=== PATIENT | female | born 1985 | race Caucasian/White ===

== ENCOUNTER 2018-09-06 09:48 | Inpatient (IN) | payer OTHER ==
[~2018-09-06] VITALS: Ht 157.5 cm; Wt 68.3 kg
[2018-09-06 10:01] VITALS: BP 115/79; PULSE 76; RESP 18; Ht 157.5 cm; Wt 68.3 kg
[2018-09-06] MEDS ORDERED: PREN-93 PO (10:01)
--- NOTE | 2018-09-06 10:26 | TRIAGE ---
OB Triage Datetime Report Generated by CPN: 09/06/2018 10:26 Datetime: 09/06/2018 10:06 Vaginal Exam Dilatation (cms): 3.0 Effacement (%): 90 Station: -2 Exam By: kristen Vaginal Bleeding: None Cervix, Consistency: Soft Cervix, Position: Midposition Presentation 'A': Cephalic Datetime: 09/06/2018 09:58 Assessment Type: Triage Maternal Assessment Level of Consciousness: Keenly Alert, Responsive DTR's/Clonus: DTRs 2+; No Clonus Headache: Denies Blurred Vision: No Respiratory Effort: Unlabored; Regular Rhythm; Equal Expansion Breath Sounds, Left: Clear and Equal Breath Sounds, Right: Clear and Equal Nausea/Vomiting: Denies RUQ Epigastric Pain: Denies Lower Extremities Edema: Bilateral Lower Extremities Degree: 1+ Upper Extremities Edema: None Degree: None Facial Edema: None Fall Risk Assessment History of Falling: (0) No Secondary Diagnosis: (0) No Ambulatory Aid: (0) Bedrest/Nurse Assist IV Therapy: (0) No Gait: (0) Normal/Bedrest/Immobile Mental Status: (0) Oriented to Own Ability Fall Score: 0 Fall Risk Score Definition: No Risk: No action required Datetime: 09/06/2018 09:56 Time of Arrival: 09/06/2018 09:37 EGA: 39.6 Arrived By: Ambulatory; Wheelchair Arrived From: Home Chief Complaint: PT. HERE C/O UC'S SINCE 829 Movement: Present Contractions: Irregular Rupture of Membranes: Denies Vaginal Bleeding: None Vaginal Discharge: Denies Recent Sexual Intercouse: Denies Abdominal Trauma: Not Applicable Patient Complaints: Contractions; Cramping; Back Pain Time Provider Notified: 09/06/2018 10:10 Provider Notified: HADADIAN Initial Plan: EFM/SVE Datetime: 09/06/2018 09:54 Labor Evaluation Monitor Mode: External Heart Rate Monitor Mode: External US
[2018-09-06] MEDS ORDERED: METHYLERGONOVINE 0.2 MG INJ IM PRN (11:30)
[2018-09-06] MEDS ORDERED: OXYTOCIN 30 UNITS/LR 500 ML IV PRN (11:30)
[2018-09-06] MEDS ORDERED: LIDOCAINE 1% (MPF) 30 ML INJ INJ PRN (11:30)
[2018-09-06] MEDS ORDERED: CARBOPROST 250 MCG INJ IM PRN (11:30)
[2018-09-06] MEDS ORDERED: MISOPROSTOL 200 MCG TAB PR PRN (11:30)
[2018-09-06] MEDS ORDERED: OXYTOCIN 30 UNITS/LR 500 ML IV SCH ×2 (11:30)
[2018-09-06] MEDS ORDERED: BUTORPHANOL 2 MG INJ IV PRN (11:30)
[2018-09-06] MEDS ORDERED: AMPICILLIN 2 GM/NS (PMX) 100 ML IV ONE (11:30)
[2018-09-06] MEDS ORDERED: IBUPROFEN 600 MG TAB PO PRN (11:30)
[2018-09-06] MEDS: LACTATED RINGER'S 1,000 ML IV SCH ×4 (11:33→19:17)
[2018-09-06] MEDS ORDERED: FENTAnyl 2MCG/ML-ROPIV 0.2% 100 ML ONE (12:13)
--- NOTE | 2018-09-06 12:13 | HP ---
Date/Time of Note Date/Time of Note DATE: 09/06/18 TIME: 12:09 OB - History Hx of Present Free Text/Dictation 32 years old 1 with single intrauterine at 39 weeks and 6 days complaining of uterine contractions. She states good movement. She denies nausea, vomiting, shortness of breath, chest pain, headache, visual changes, vaginal bleeding or LOF. Chief Complaint: Uterine contractions Estimated Due Date: Sep 07, 2018 : 1 Care: Good Care Ultrasounds: Normal mid trimester US Obstetrical Complications: None Medical Complications: None Past Family/Social History * Past Medical, Surgical, Family and Obstetric Histories reviewed which is unremarkable Blood Type: O+ Rubella: immune RPR/VDRL: Negative GBS Status: Negative HBsAG: Negative OB Admission Exam Vital Signs Vital Signs Vital Signs Date Temp Pulse Resp B/P (MAP) Pulse Ox O2 O2 Flow FiO2 Time Delivery Rate 09/06/18 97.7 76 18 115/79 Room Air 10:01 (91) Physical Exam HEENT: WNL Heart: Rhythm Normal Lungs: Clear Abdomen: WNL Extremities: Normal Cervical Dilatation: 3cm Effacement: 75% Station: -2 Membranes: Intact Heart Rate: 140's Accelerations: Accelerations Present Decelerations: No Decelerations Varibility: Moderate Contractions on Admission: < 5 Minutes Apart Intensity: Moderate Last 72 hours Lab Results OB Assessment/Plan Other plan: 32 years old 1 with single intrauterine at 39 weeks and 6 days in labor -FHR: No sign of metabolic acidosis- Category I -Continuous EFM, toco -CBC, blood type and screen -Analgesia options with R/B/A discussed in detail with patient -Epidural per patient request -Please see the orders -O+/Rubella: Immune -GBS: Negative Admission, procedures, expectations, risks and possible complications have been discussed in detail with the patient. Risk of vaginal delivery including but not limited to bleeding, infection, cervical laceration, placental retention, injury to fetus, blood transfusion, blood transfusion related infection, risk of anesthesia, adhesion, cervical laceration, episiotomy/laceration, possible delivery with risk of bleeding, infection, injury to other organs (bowel, bladder, ureter, vessels, nerves), injury to fetus, blood transfusion, blood transfusion related infection, risk of anesthesia, scar and hernia format ion, needs for future , removal of uterus or any other indicated surgery discussed with the patient. She expressed understanding and repeats the risks. All of her questions were answered. She signed the informed consent. PHYSICIAN'S VERIFICATION OF INFORMED CONSENT The patient was counseled regarding the procedure, its indications, risks, potential complications and alternatives and any questions were answered. Consent was obtained. PLANNED PROCEDURE/TREATMENT: Vaginal delivery, episiotomy, repair of laceration possible delivery MADDY RABAGO Sep 06, 2018 12:13
--- NOTE | 2018-09-06 12:28 | PREAC ---
Date/Time of Note Date/Time of Note DATE: 09/06/18 TIME: 12:27 Anesthesia Eval and Record Evaluation Time Pre-Procedure Interview DATE: 09/06/18 TIME: 12:27 Age 32 Sex female NPO: 8 hrs Preoperative diagnosis Labor Pain Planned procedure Labor Epidural Past Medical History Past Medical History: Includes Heme: Anemia : : (1), Para: (0), Gestational age: (39) Surgery & Anesthesia Issues No known issue Meds Anticoagulation: No Beta Travis within 24 hr: No Reason Beta Travis not given: Pt. not on B-Travis Reported Medications Vit No.124/Iron/FA ( Vitamin Tablet) 1 Each Tablet, 1 EACH PO DAILY, TAB 09/06/18 Current Medications Lactated Ringer's 1,000 ml @ 125 mls/hr Q8H IV Last administered on 09/06/18at 12:17; Admin Dose 125 MLS/HR; Start 09/06/18 at 11:14 Ampicillin 100 ml @ 100 mls/hr ONCE ONCE IV Last administered on 09/06/18at 12:17; Admin Dose 100 MLS/HR; Start 09/06/18 at 11:30; Stop 09/06/18 at 12:29 Ampicillin 50 ml @ 100 mls/hr Q4H IV ; Start 09/06/18 at 14:30 Butorphanol Tartrate (Stadol) 2 mg Q2H PRN IV .PAIN SCALE 6-10; Start 09/06/18 at 11:30 Lidocaine (Xylocaine 1% (Mpf)) 30 ml ONCE PRN INJ .EPISIOTOMY; Start 09/06/18 at 11:30 Oxytocin/Lactated Ringer's 500 ml @ 500 mls/hr ONCE POST IV ; Start 09/06/18 at 11:30 Oxytocin/Lactated Ringer's 500 ml @ 125 mls/hr POST IV ; Start 09/06/18 at 11:30 Ibuprofen (Motrin) 600 mg ONCE PRN PO .PAIN 1-5; Start 09/06/18 at 11:30 Oxytocin/Lactated Ringer's 500 ml @ 0 mls/hr ONCE PRN IV .VAGINAL BLEEDING; Start 09/06/18 at 11:30 Methylergonovine Maleate (Methergine) 0.2 mg ONCE PRN IM .VAGINAL BLEEDING; Start 09/06/18 at 11:30 Carboprost Tromethamine (Hemabate) 250 mcg ONCE PRN IM .VAGINAL BLEEDING; Start 09/06/18 at 11:30 Misoprostol (Cytotec) 1,000 mcg ONCE PRN [place] .VAGINAL BLEEDING; Start 09/06/18 at 11:30 Meds reviewed: Yes Allergies Coded Allergies: No Known Allergy (Unverified , 09/06/18) Allergies Reviewed: Yes Labs/Studies Labs Reviewed: Reviewed by anesthesiologist Result Diagram: 09/06/18 1125 Laboratory Tests 09/06/18 11:25 Blood Bank Test 09/06/18 11:25 Blood Type O POSITIVE Rh Immune Globulin Candidate NO test: Positive Studies: ECG (n/a), CXR (n/a) Pre-procedure Exam Last vitals Vital Signs Date Temp Pulse Resp B/P (MAP) Pulse Ox O2 O2 Flow FiO2 Time Delivery Rate 09/06/18 97.7 76 18 115/79 Room Air 10:01 (91) Airway: Adequate mouth opening, Adequate thyromental dist Mallampati: Mallampati II Teeth: Normal Lung: Normal Heart: Normal ASA Physical Status ASA physical status: 2 Emergency: None Planned Anesthetic Neuraxial: Epidural Planned Pain Management Epidural Pre-operative Attestations Prior to commencing anesthesia and surgery, the patient was re-evaluated, there was verification of: *The patient's identity *The results of appropriate recent lab work and preoperative vital signs *The above evaluation not changing prior to induction *Anesthetic plan, risk benefits, alternative and complications discussed with patient/family; questions answered; patient/family understands, accepts and wishes to proceed. YUSRA GARNER MD Sep 06, 2018 12:28
[2018-09-06] MEDS ORDERED: FENTAnyl 2MCG/ML-ROPIV 0.2% 100 ML BAG EPI SCH (12:30)
[2018-09-06] MEDS ORDERED: NALOXONE (0.4 MG/ML) INJ IV PRN (12:30)
--- NOTE | 2018-09-06 12:30 | PAC ---
Date/Time of Note Date/Time of Note DATE: 09/06/18 TIME: 12:29 Post-Anesthesia Notes Post-Anesthesia Note Last documented vital signs Vital Signs Date Temp Pulse Resp B/P (MAP) Pulse Ox O2 O2 Flow FiO2 Time Delivery Rate 09/06/18 97.7 76 18 115/79 99 Room Air 11:30 (91) Activity: WNL Respiratory function: WNL Cardiovascular function: WNL Mental status: Baseline Pain reasonably controlled: Yes Hydration appropriate: Yes Nausea/Vomiting absent: Yes YUSRA GARNER MD Sep 06, 2018 12:30
[2018-09-06] MEDS: AMPICILLIN 1 GM/NS (PMX) 50 ML IV SCH ×3 (16:30→22:30)
[2018-09-06] MEDS ORDERED: GENTAMICIN 120 MG/NS (PMX) 100 ML IVPB STA (19:44)
[2018-09-06] MEDS ORDERED: ONDANSETRON 4 MG INJ IV STA (20:51)
[2018-09-06] MEDS ORDERED: CITRIC ACID/NA CITRATE 30 ML CUP ONE (20:54)
[2018-09-06] MEDS ORDERED: ONDANSETRON 4 MG INJ ONE ×2 (20:54→21:16)
[2018-09-06] MEDS ORDERED: CITRIC ACID/NA CITRATE 30 ML CUP PO ONE (21:00)
[2018-09-06] MEDS ORDERED: AMPICILLIN 2 GM/NS (PMX) 100 ML ONE (21:02)
[2018-09-06] MEDS ORDERED: OXYTOCIN 30 UNITS/LR 500 ML BAG IV ONE (21:07)
[2018-09-06] MEDS ORDERED: ROPIVACAINE 0.5 % 30 ML VIAL ONE (21:07)
[2018-09-06] MEDS ORDERED: OXYTOCIN 10 UNIT INJ ONE (21:07)
[2018-09-06] MEDS ORDERED: KETOROLAC 30 MG INJ ONE (21:16)
[2018-09-06] MEDS ORDERED: DEXAMETHASONE 4 MG/ML 1 ML INJ ONE (21:16)
[2018-09-06] MEDS ORDERED: METOCLOPRAMIDE 10 MG INJ ONE (21:16)
[2018-09-06] MEDS ORDERED: MEPERIDINE 100 MG INJ ONE (21:27)
[2018-09-06] MEDS ORDERED: morphine SULFATE/PF (10 MG/10 ML) INJ ONE (21:44)
--- NOTE | 2018-09-06 21:44 | PREAC ---
Date/Time of Note Date/Time of Note DATE: 09/06/18 TIME: 21:41 Anesthesia Eval and Record Evaluation Time Pre-Procedure Interview DATE: 09/06/18 TIME: 21:41 Age 32 Sex female NPO: 8 hrs Preoperative diagnosis Distress, Prolong Deceleration and Failure to descend Planned procedure Urgent Past Medical History Past Medical History: Includes Heme: Anemia : : (1), Para: (0), Gestational age: (39) Surgery & Anesthesia Issues No known issue Meds Anticoagulation: No Beta Travis within 24 hr: No Reason Beta Travis not given: Pt. not on B-Travis Reported Medications Vit No.124/Iron/FA ( Vitamin Tablet) 1 Each Tablet, 1 EACH PO DAILY, TAB 09/06/18 Current Medications Lactated Ringer's 1,000 ml @ 125 mls/hr Q8H IV Last administered on 09/06/18at 19:17; Admin Dose 125 MLS/HR; Start 09/06/18 at 11:14 Ampicillin 50 ml @ 100 mls/hr Q4H IV Last administered on 09/06/18at 16:30; Admin Dose 100 MLS/HR; Start 09/06/18 at 14:30 Butorphanol Tartrate (Stadol) 2 mg Q2H PRN IV .PAIN SCALE 6-10; Start 09/06/18 at 11:30 Lidocaine (Xylocaine 1% (Mpf)) 30 ml ONCE PRN INJ .EPISIOTOMY; Start 09/06/18 at 11:30 Oxytocin/Lactated Ringer's 500 ml @ 500 mls/hr ONCE POST IV ; Start 09/06/18 at 11:30 Oxytocin/Lactated Ringer's 500 ml @ 125 mls/hr POST IV ; Start 09/06/18 at 11:30 Ibuprofen (Motrin) 600 mg ONCE PRN PO .PAIN 1-5; Start 09/06/18 at 11:30 Oxytocin/Lactated Ringer's 500 ml @ 0 mls/hr ONCE PRN IV .VAGINAL BLEEDING; Sta rt 09/06/18 at 11:30 Methylergonovine Maleate (Methergine) 0.2 mg ONCE PRN IM .VAGINAL BLEEDING; Sta rt 09/06/18 at 11:30 Carboprost Tromethamine (Hemabate) 250 mcg ONCE PRN IM .VAGINAL BLEEDING; Start 09/06/18 at 11:30 Misoprostol (Cytotec) 1,000 mcg ONCE PRN [place] .VAGINAL BLEEDING; Start 09/06/18 at 11:30 Naloxone HCl (Narcan) 0.2 mg Q2M PRN IV .RESP RATE; Start 09/06/18 at 12:30 Fentanyl/ Ropivacaine 100 ml EPIDURAL (PCEA) EPI ; Start 09/06/18 at 12:30 Meds reviewed: Yes Allergies Coded Allergies: No Known Allergy (Unverified , 09/06/18) Allergies Reviewed: Yes Labs/Studies Labs Reviewed: Reviewed by anesthesiologist Result Diagram: 09/06/18 1125 Laboratory Tests 09/06/18 11:25 Blood Bank Test 09/06/18 11:25 Blood Type O POSITIVE Rh Immune Globulin Candidate NO test: Positive Studies: ECG (n/a), CXR (n/a) Pre-procedure Exam Last vitals Vital Signs Date Temp Pulse Resp B/P (MAP) Pulse Ox O2 O2 Flow FiO2 Time Delivery Rate 09/06/18 97.7 76 18 115/79 Room Air 10:01 (91) Airway: Adequate mouth opening, Adequate thyromental dist Mallampati: Mallampati II Teeth: Normal Lung: Normal Heart: Normal ASA Physical Status ASA physical status: 2 Emergency: E Planned Anesthetic Neuraxial: Epidural Planned Pain Management Epidural, Parenteral pain med Pre-operative Attestations Prior to commencing anesthesia and surgery, the patient was re-evaluated, there was verification of: *The patient's identity *The results of appropriate recent lab work and preoperative vital signs *The above evaluation not changing prior to induction *Anesthetic plan, risk benefits, alternative and complications discussed with patient/family; questions answered; patient/family understands, accepts and wishes to proceed. YUSRA GARNER MD Sep 06, 2018 21:44
--- NOTE | 2018-09-06 21:53 | OPPN ---
Date/Time of Note Date/Time of Note DATE: 09/06/18 TIME: 21:48 Event Note afte baby continue to have respiratory distress and was not maintaining saturation and HR was dropping, initial HR was 168/min and SAT was 98% then sat was coming down to 80% baby was maskt ventilated and orally suctioned, due to respiratory distress and severe intercostal and suprasternal retraction ETT 2.0 placed under direct laryngoscopy X1 ET tube secured at 12 cm lip level, BBSE and crackles heard bilaterally, ETT suctioned no meconium noted. baby was transferred to ICU the program manager transportation was not present at the time. the baby's situation was explained to the parents, Dad cut th e cord as well and accompanied the baby to ICU. YUSRA GARNER MD Sep 06, 2018 21:53
--- NOTE | 2018-09-06 22:05 | PAC ---
Date/Time of Note Date/Time of Note DATE: 09/06/18 TIME: 22:05 Post-Anesthesia Notes Post-Anesthesia Note Last documented vital signs Vital Signs Date Temp Pulse Resp B/P (MAP) Pulse Ox O2 O2 Flow FiO2 Time Delivery Rate 09/06/18 99.4 76 18 115/79 98 Room Air 22:06 (91) Activity: WNL Respiratory function: WNL Cardiovascular function: WNL Mental status: Baseline Pain reasonably controlled: Yes Hydration appropriate: Yes Nausea/Vomiting absent: Yes YUSRA GARNER MD Sep 06, 2018 22:05
--- NOTE | 2018-09-06 23:56 | QN ---
Documentation Comment late entry note I was called by nursing staff due to recurrent variable Decelerations. Attended to the patient bedside. Tracing reviewed. Episodes of variable deceleration noted, recovering. AROM done. Clear amniotic fluid noted. Exam: C/ C / -2. heart tracing: Category 2 Discussed with the nursing labor down. We will watch the tracing closely. Expectant management. Anticipate GISELE DANIELLE MD Sep 06, 2018 23:56
[2018-09-07] VITALS (8 sets, daily range): BP systolic 113–141; BP diastolic 53–81; PULSE 61–78; RESP 18–19
--- NOTE | 2018-09-07 00:01 | QN ---
Documentation Comment heart tracing reevaluated. Episodes of variable prolonged deceleration noted with recovery between and good variability noted.. tachycardia, Maternal fever reported. Maternal temperature: 101. Low urine output noted,. Likely dehydration. Started IV bolus Exam consistent with chorioamnionitis. Patient currently receiving ampicillin for GBS prophylaxis. Ordered Gentamicin. Examination: C/ C/ +1-2 Started pushing. Attempted pushing sometimes with every other contractions, tachycardia with good variability noted. There is prolonged variable deceleration associated with some of contractions. After active pushing repeat exam: Complete complete +2. Due to prolonged variable deceleration vacuum assisted vaginal delivery attempted. Two pop off noted. Due to continuous prolonged variable deceleration with maternal pushing that was recovering between the contractions and failed vacuum extraction decision was made to proceed to section. Risk and benefit of section including risk of infection, bleeding, damage to surrounding structures including bowel and bladder and risk of blood transfusion including but not limited to blood borne infection including HIV, hepatitis B and C and transfusion reaction discussed with patient in detail. Informed consent was obtained. Patient verbalized understanding all above risks and desires to proceed. Nursing staff, or anesthesia was notified. When I called for section baseline heart rate was in 170-180's with good variability. GISELE WALDEN MD Sep 07, 2018 00:01
[2018-09-07] MEDS ORDERED: LACTATED RINGER'S 1,000 ML IV SCH (00:12)
[2018-09-07] MEDS: OXYTOCIN 30 UNITS/LR 500 ML IV SCH ×2 (00:12→04:20)
--- NOTE | 2018-09-07 00:12 | OPR ---
Operative Report Planned Procedure Free Text/Dictation September 07, 2018. Late entry note Procedure date Sep 07, 2018 Procedure(s) Primary low transverse section via Pfannenstiel skin incision Performed by see signature line Security Director: MURTAZA GIL MD Anesthesiologist: YUSRA GARNER MD Pre-procedure diagnosis 1 IUP at 39 weeks and 5 days 2. intolerance to labor 3. Failure to progress 4 nonreassuring heart tracing. 5. Chorioamnionitis [id number] Anesthesia Type: Isitr1a general Post-Procedure Post-procedure diagnosis Thick meconium noted Same Findings Live Baby Male ], Apgars [4,6, 8 ] and vertex presentation . Thick meconium noted. Estimated Blood Loss: 500 - 600 mls Specimen(s) Cord blood, cord gas Placenta was sent to pathology and for culture Grafts/Implant(s) none Complication(s) none Pt Condition post procedure: stable Disposition: PACU Procedure Description 32-year-old G1, P0 with IUP at 39 weeks and 5 days presented in labor. She was noted to have recurrent variable deceleration with good variability consistent with category 2 tracing. When the patient was complete prolonged variable deceleration with maternal pushing. There was also tachycardia and maternal fever consistent with chorioamnionitis. Due to nonreassuring heart tracing, chorioamnionitis and failure to progress decision was made to proceed with primary section. Risk and benefit of section including risk of infection, bleeding, damage to surrounding structures including bowel and bladder and risk of blood transfusion including but not limited to blood borne infection including HIV, hepatitis B and C and transfusion reaction discussed with patient in detail and informed consent was obtained. Patient verbalized understanding above risks Category 2 tracing after my last exam noted. Patient failed vacuum assisted vaginal delivery due to continuous prolonged variable deceleration with contractions. Called for section. She received antibiotic for GBS prophylaxis. After last exam when was called heart tracing was in 180s with good variability. Patient had subsequenty prolonged deceleration and was subsequently transferred by nursing staff to the OR. I was informed by RN on deceleration noted prior to transfer the patient to the OR. When I was informed in the OR, emergency section performed immediately. First a Pfannenstiel skin incision was made after assurance about adequate anesthesia was carried down to the underlying layer of fascia using scalpel. Then the upper aspect of the fascial incision grasped using Alejandra was elevated and was dissected off of the rectus muscle using sharp dissection. Then the rectus muscle was dissected in the midline and parietal peritoneum entered bluntly. Intra-abdominal cavity entered bluntly. Lower uterine segment was identified. Lower uterine segment was transversely incised with careful at tention to the bladder. Intrauterine cavity entered. Thick meconium noted. Baby's head was then grasped which was deep in the pelvis and was brought up to the incision and then while medical practice assistant was applying fundal pressure the baby's head and then anterior shoulder then the posterior shoulder and the rest of the body delivered. Immediately cord was clamped and cut and baby was handed to the RT and NICU team. Cord blood was obtained. Cord gas was obtained. Placenta was then delivered completely intact and was sent for culture and pathology. Then the uterus was cleared of all clots and debris's. The uterine incision was then repaired in 2 layers using 1-0 Monocryl. First layer used for hemostasis with a running locked fashion and the second layer used for imbrication. Excellent hemostasis of the incision was obtained. Then the gutters were cleared of all clots and debris's. Then the parietoperitoneum repaired with 2-0 Vicryl in a continuous fashion. Then the rectus muscle was reapproximated using 2-0 Vicryl and then the fascia was reapproximated using 1-0 Vicryl in them continuous fashion. Irrigation of subcutaneous tissue performed using warm normal saline. Hemostasis of the suppleness tissue obtained. Irrigation of suppleness tissue performed using copious amounts of warm normal saline. In the suppleness tissue reapproximated using interrupted multiple plain gut suture. Then the skin was reapproximated using 3-0 Monocryl sub-particular fashion. Sponge lap and needle counts and lap counts were correct x2. Patient tolerated the procedure well. Fundus was firm at the end of the delivery. Patient was then transferred to recovery room in stable condition. Baby was intubated in the OR by anesthesiologist and subsequently was transferred to NICU. GISELE WALDEN MD Sep 07, 2018 00:12
[2018-09-07] MEDS ORDERED: NA PHOSPHATE/BIPHOS 133 ML ENEMA PR PRN (00:30)
[2018-09-07] MEDS ORDERED: OXYTOCIN 30 UNITS/LR 500 ML IV PRN (00:30)
[2018-09-07] MEDS ORDERED: LANOLIN HPA 1 PKT TOP PRN (00:30)
[2018-09-07] MEDS ORDERED: NACL 0.9% 3 ML SYG IV SCH (00:30)
[2018-09-07] MEDS ORDERED: METHYLERGONOVINE 0.2 MG TAB PO PRN (00:30)
[2018-09-07] MEDS ORDERED: METHYLERGONOVINE 0.2 MG INJ IM PRN (00:30)
[2018-09-07] MEDS ORDERED: MISOPROSTOL 200 MCG TAB PR PRN (00:30)
[2018-09-07] MEDS ORDERED: GENTAMICIN 290 MG in SOD CHLORIDE 0.9% 100 ML IVPB ONE (00:30)
[2018-09-07] MEDS ORDERED: CARBOPROST 250 MCG INJ IM PRN (00:30)
[2018-09-07] MEDS ORDERED: HYDROCODONE/APAP (5/325) TAB PO PRN ×2 (00:30→02:00)
[2018-09-07] MEDS ORDERED: morphine 2 MG INJ IV PRN ×2 (02:00)
[2018-09-07] MEDS ORDERED: ACETAMINOPHEN 500 MG TAB PO PRN (02:00)
[2018-09-07] MEDS ORDERED: NALBUPHINE HCL (10 MG/1 ML) INJ IV PRN (02:00)
[2018-09-07] MEDS ORDERED: NALOXONE (0.4 MG/ML) INJ IV PRN (02:00)
[2018-09-07] MEDS ORDERED: DIPHENHYDRAMINE 50 MG INJ IV PRN (02:00)
[2018-09-07] MEDS ORDERED: HYDROmorphONE 0.5 MG/0.5 ML SYG IV PRN ×2 (02:00)
[2018-09-07] MEDS ORDERED: ONDANSETRON 4 MG INJ IV PRN (02:00)
[2018-09-07] MEDS ORDERED: IBUPROFEN 600 MG TAB PO SCH (06:00)
[2018-09-07] MEDS: CLINDAMYCIN 900 MG/D5W (PMX) 50 ML IVPB SCH ×3 (06:25→21:47)
[2018-09-07] MEDS ORDERED: CLINDAMYCIN 900 MG INJ IM ONE (09:00)
--- NOTE | 2018-09-07 09:51 | PN ---
Date/Time of Note Date/Time of Note DATE: 09/07/18 TIME: 09:51 OB Subjective Subjective Subjective Patient without complaints. Loza in place. Tolerating regular diet. Dizziness. Vital signs stable Abdomen fundus firm below umbilicus Incision C/D/I dressing in place Extremities nontender to palpation, + edema Assessment/plan: 1. postoperative cs-routine care.h/h 11.2/32.6. incentive spirometer 2. Dizziness-vitals stable and h/h stable MILESTONEJAQUELIN MD Sep 07, 2018 09:51
[2018-09-07] MEDS: LACTATED RINGER'S 1,000 ML IV SCH ×2 (12:53→21:47)
[2018-09-07] MEDS: KETOROLAC 30 MG INJ IV PRN ×2 (15:05→20:26)
--- NOTE | 2018-09-08 00:48 | DELSUM ---
Delivery Summary A-C Datetime Report Generated by CPN: 09/08/2018 00:48 DELIVERY PERSONNEL School Guard: Colón, Rowan MATERNAL INFORMATION Delivery Anesthesia: Epidural Medications in Delivery: SEE ANESTHESIA FLOWSHEET Delivery QBL (ml): 700 Placenta Cultured: No Maternal Complications: Maternal Fever Other Maternal Complications: TEMP 101.2 LABOR SUMMARY EDC: 09/07/2018 00:00 No. Babies in Womb: 0 Attempted: No Labor Anesthesia: Epidural LABOR INFORMATION Reason for Induction: Not Applicable Onset of Labor: 09/06/2018 09:00 Complete Dilatation: 09/06/2018 17:49 Group B Beta Strep: Positive Antibiotics # of Doses: 4 Antibiotics Time of Last Dose: 09/06/2018 20:55 Steroids Given: None Reason Steroids Not Administered: Not Applicable MEMBRANES Membranes Rupture Method: Artificial Rupture of Membranes: 09/06/2018 17:49 Length of Rupture (hr): 3.42 Amniotic Fluid Color: Clear Amniotic Fluid Amount: Small Amniotic Fluid Odor: None STAGES OF LABOR Stage 1 hr: 8 Stage 1 min: 49 Stage 2 hr: 3 Stage 2 min: 25 Stage 3 hr: 0 Stage 3 min: 1 Total Time in Labor hr: 12 Total Time in Labor min: 15 VAGINAL DELIVERY Episiotomy: None Laceration Extension: N/A Laceration Type: None CSECTION DELIVERY Primary Indication: Secondary Arreof Dilata Secondary Indication: Nonreassuring Stat CSection Urgency: Emergency CSection Incidence: Primary CSection Incision: Lower Uterine Transverse BABY A INFORMATION Delivery Date/Time: 09/06/2018 21:14 Method of Delivery: Born in Route : No : N/A Forceps: N/A Vacuum Extraction: Failed Shoulder Dystocia : N/A ASSISTED DELIVERY BABY A Indication for Assisted Delivery: VARIABLES Vacuum Number of Pulls: 4 Vacuum Number of PopOffs: 2 Reduce Pressure btwn Ctx: Yes Vacuum Outboard Technician: MiradiaWI Total Time Vacuum Applied: 6 MIN Vacuum/Forceps Comment: PRESSURE OBTAINED BY MD SHOULDER DYSTOCIA BABY A Delivery Date/Time: 09/06/2018 21:14 PRESENTATION/POSITION BABY A Presentation: Cephalic Cephalic Presentation: Vertex Breech Presentation: N/A PLACENTA INFORMATION BABY A Placenta Delivery Time : 09/06/2018 21:15 Placenta Method of Delivery: Manual Removal Placenta Status: Delivered SCORES BABY A Heart Rate 1 min: >100 bpm Resp Effort 1 min: Slow, Irregular Reflex Irritability 1 min: No Response Muscle Tone 1 min: Some Flexion of Extrem Color 1 min: Blue/Pale Resuscitation Effort 1 min: Tactile Stimulation SCORE 1 MIN: 4 Heart Rate 5 min: >100 bpm Resp Effort 5 min: Slow, Irregular Reflex Irritability 5 min: Grim[place] Muscle Tone 5 min: Some Flexion of Extrem Color 5 min: Body [place], Extremit Blue Resuscitation Effort 5 min: Tactile Stimulation SCORE 5 MIN: 6 Heart Rate 10 min: >100 bpm Resp Effort 10 min: Good Cry Reflex Irritability 10 min: Cough/Sneeze/Pulls Away Muscle Tone 10 min: Some Flexion of Extrem Color 10 min: Body [place], Extremit Blue Resuscitation Effort 10 min: Tactile Stimulation SCORE 10 MIN: 8 INFANT INFORMATION BABY A Gestational Age at Delivery: 39.6 Gestational Status: Full Term- 39- 40.6 Weeks Infant Outcome : Liveborn, with signs of life Condition : Critical Infant Sex: Male IDENTIFICATION/MEDS BABY A ID Band Number: [id number] ID Band Location: Right Leg; Left Arm Sensor Applied: No Sensor Location : Cord Clamp Vitamin K Given : Not Given Erythromycin Given: Not Given WEIGHT/LENGTH BABY A Birthweight (gm): 3090 Infant Weight (lb): 6 Weight (oz): 13 Length (in): 19.75 Length (cm): 50.17 CORD INFORMATION BABY A No. Cord Vessels: 3 Nuchal Cord : N/A Cord Blood Taken: Yes Infant Suction: Mouth; Nose ASSESSMENT BABY A Complications: Extended Tachycardi; Multiple Late Decels; Multiple Variable Decels; Mec onium Physical Findings at Delivery: Molding of the Head Physical Findings- Other: SEE NICU REPORT Respirations: Nasal Flaring; Sternal Retractions Hand Flatwork Finisher/ALS Called : Yes Care By: AMRIT Transferred To: NICU
[2018-09-08] MEDS: GENTAMICIN 80 MG/NS (PMX) 50 ML IVPB SCH ×3 (02:09→19:37)
[2018-09-08 03:23] VITALS: BP 111/67; PULSE 65; RESP 18
[2018-09-08] MEDS: CLINDAMYCIN 900 MG/D5W (PMX) 50 ML IVPB SCH ×3 (05:56→22:12)
[2018-09-08] MEDS: IBUPROFEN 600 MG TAB PO SCH ×5 (06:00→23:38)
[2018-09-08 07:35] VITALS: BP 119/79; PULSE 75; RESP 18
--- NOTE | 2018-09-08 10:47 | PN ---
Date/Time of Note Date/Time of Note DATE: 09/08/18 TIME: 10:38 OB Subjective Subjective Subjective no c/o tolerating diet well passing flatus OB Objective Objective Objective vss afebrile abdomen soft wound dry caf neg for tenderness ext edematous lochia min OB Assessment/Plan Other Assessment: stable post PC/S #2 leukocytosis but from [address] to [address] Plan: Expectant Management, Other (continue on current regimen) BLAISE GIL MD Sep 08, 2018 10:47
[2018-09-08] MEDS: LACTATED RINGER'S 1,000 ML IV SCH ×2 (11:14→19:14)
[2018-09-08 19:30] VITALS: BP 132/77; PULSE 65; RESP 18
[2018-09-09] MEDS: GENTAMICIN 80 MG/NS (PMX) 50 ML IVPB SCH ×2 (02:04→10:10)
[2018-09-09 03:25] VITALS: BP 118/71; PULSE 56; RESP 18
[2018-09-09] MEDS: IBUPROFEN 600 MG TAB PO SCH ×2 (05:51→13:44)
[2018-09-09] MEDS: CLINDAMYCIN 900 MG/D5W (PMX) 50 ML IVPB SCH (05:51)
[2018-09-09 08:00] VITALS: BP 124/73; PULSE 74; RESP 18
--- NOTE | 2018-09-09 12:29 | DS ---
Date/Time of Note Date/Time of Note DATE: 09/09/18 TIME: 12:26 Obstetrical Discharge Record Final Diagnosis Final Diagnosis: Term delivered Other Final Diagnosis Postop day #3 Status post primary Patient stable and afebrile Positive flatus and voiding and tolerating regular diet and ambulating Vital signs stable Hematology - 72 Hrs Test 09/06/18 23:38 09/08/18 07:20 Hematocrit 32.6 % (37.0-47.0) L 26.4 % (37.0-47.0) L Hemoglobin 11.2 g/dl (12.0-16.0) L 8.9 g/dl (12.0-16.0) #L Mean Corpuscular 34.1 pg (29.0-33.0) H 34.0 pg (29.0-33.0) H Hemoglobin Mean Corpuscular 34.4 g/dl (32.0-37.0) 33.7 g/dl (32.0-37.0) Hemoglobin Concent Mean Corpuscular Volume 99.4 fl (82.0-101.0) 100.8 fl (82.0-101.0) Mean Platelet Volume 11.6 fl (7.4-10.4) H 10.5 fl (7.4-10.4) H Platelet Count 216 10^3/UL (140-415) 187 10^3/UL (140-415) Red Blood Count 3.28 10^6/ul (4.20-5.40) 2.62 10^6/ul (4.20-5.40) L #L Red Cell Distribution 12.2 % (11.5-14.5) 12.4 % (11.5-14.5) Width White Blood Count 25.7 10^3/ul (4.8-10.8) 17.6 10^3/ul (4.8-10.8) #H #H Chemistry Test 09/06/18 23:39 09/08/18 07:20 Sodium Level 137 mmol/L (135-144) 134 mmol/L (135-144) L Potassium Level 4.0 mmol/L (3.5-5.1) 4.0 mmol/L (3.5-5.1) Chloride Level 112 mmol/L (97-110) H 105 mmol/L (97-110) Carbon Dioxide Level 19 mmol/L (21-31) L 25 mmol/L (21-31) Anion Gap 6 (5-13) 4 (5-13) L Blood Urea Nitrogen 14 mg/dl (7-20) 12 mg/dl (7-20) Creatinine 0.98 mg/dl (0.44-1.00) 0.72 mg/dl (0.44-1.00) Est Glomerular Filtrat > 60 mL/min (>60) > 60 mL/min (>60) Rate mL/min Glucose Level 84 mg/dl (70-220) 78 mg/dl (70-220) Calcium Level 8.2 mg/dl (8.4-10.2) L 7.8 mg/dl (8.4-10.2) L Abdomen soft, fundus firm Incision clean, dry, intact Extremities nontender Assessment and plan Patient stable and doing well Plan to discharge home Prescription for Motrin and Keflex was given Patient instructed to follow-up with [facility] in 2 and 6 weeks Section Section: Primary Condition on Discharge Physical Assessment Last Vitals: VS - Last 72 Hours, by Label Date Temp Pulse Resp B/P (MAP) Pulse Ox O2 O2 Flow FiO2 Time Delivery Rate 09/09/18 97.7 74 18 124/73 Room Air 08:00 (90) 09/09/18 98.2 56 18 118/71 Room Air 03:25 (87) 09/08/18 98.3 65 18 132/77 Room Air 19:30 (95) 09/08/18 98.0 75 18 119/79 Room Air 07:35 (92) 09/08/18 97.9 65 18 111/67 Room Air 03:23 (82) 09/07/18 98.6 73 18 114/53 95 Room Air 20:30 (73) 09/07/18 98.5 78 18 113/72 99 Room Air 15:35 (86) 09/07/18 98.2 76 18 118/68 100 Room Air 12:14 (85) 09/07/18 98.6 71 18 120/77 98 Room Air 08:00 (91) 09/07/18 61 19 131/81 06:30 (98) 09/07/18 97.8 63 19 132/80 Room Air 04:15 (97) 09/07/18 61 19 141/74 Room Air 02:30 (96) 09/07/18 99.3 62 19 139/81 Room Air 01:50 (100) Voiding: Yes Bowel Movement: Yes Breast: Soft, non-tender Fundus: Firm Calf Tenderness: No Patient Condition: Good Copies To: CC: MADDY RABAGO ; AGUSTÍN LOPEZ MD Sep 09, 2018 12:29
[2018-09-10] MEDS ORDERED: DIPHTH/TET/ACEL PERTUSS (ADULT) 0.5 ML VIAL IM* ONE (09:00)
[2018-09-10] MEDS ORDERED: MEASLES,MUMPS,RUBELLA VACCINE INJ SC* ONE (09:00)
--- NOTE | 2018-09-10 15:06 | DELSUM ---
Delivery Summary A-C Datetime Report Generated by CPN: 09/10/2018 15:06 DELIVERY PERSONNEL [employer] Worker: Colón, Rowan MATERNAL INFORMATION Delivery Anesthesia: Epidural Medications in Delivery: SEE ANESTHESIA FLOWSHEET Delivery QBL (ml): 700 Placenta Cultured: No Maternal Complications: Maternal Fever Other Maternal Complications: TEMP 101.2 LABOR SUMMARY EDC: 09/07/2018 00:00 No. Babies in Womb: 0 Attempted: No Labor Anesthesia: Epidural LABOR INFORMATION Reason for Induction: Not Applicable Onset of Labor: 09/06/2018 09:00 Complete Dilatation: 09/06/2018 17:49 Group B Beta Strep: Positive Antibiotics # of Doses: 4 Antibiotics Time of Last Dose: 09/06/2018 20:55 Steroids Given: None Reason Steroids Not Administered: Not Applicable MEMBRANES Membranes Rupture Method: Artificial Rupture of Membranes: 09/06/2018 17:49 Length of Rupture (hr): 3.42 Amniotic Fluid Color: Clear Amniotic Fluid Amount: Small Amniotic Fluid Odor: None STAGES OF LABOR Stage 1 hr: 8 Stage 1 min: 49 Stage 2 hr: 3 Stage 2 min: 25 Stage 3 hr: 0 Stage 3 min: 1 Total Time in Labor hr: 12 Total Time in Labor min: 15 VAGINAL DELIVERY Episiotomy: None Laceration Extension: N/A Laceration Type: None CSECTION DELIVERY Primary Indication: Secondary Arreof Dilata Secondary Indication: Nonreassuring Stat CSection Urgency: Emergency CSection Incidence: Primary CSection Incision: Lower Uterine Transverse BABY A INFORMATION Delivery Date/Time: 09/06/2018 21:14 Method of Delivery: Born in Route : No : N/A Forceps: N/A Vacuum Extraction: Failed Shoulder Dystocia : N/A ASSISTED DELIVERY BABY A Indication for Assisted Delivery: VARIABLES Vacuum Number of Pulls: 4 Vacuum Number of PopOffs: 2 Reduce Pressure btwn Ctx: Yes [employer] Director: [email or web address] Total Time Vacuum Applied: 6 MIN Vacuum/Forceps Comment: PRESSURE OBTAINED BY MD SHOULDER DYSTOCIA BABY A Delivery Date/Time: 09/06/2018 21:14 PRESENTATION/POSITION BABY A Presentation: Cephalic Cephalic Presentation: Vertex Breech Presentation: N/A PLACENTA INFORMATION BABY A Placenta Delivery Time : 09/06/2018 21:15 Placenta Method of Delivery: Manual Removal Placenta Status: Delivered SCORES BABY A Heart Rate 1 min: >100 bpm Resp Effort 1 min: Slow, Irregular Reflex Irritability 1 min: No Response Muscle Tone 1 min: Some Flexion of Extrem Color 1 min: Blue/Pale Resuscitation Effort 1 min: Tactile Stimulation SCORE 1 MIN: 4 Heart Rate 5 min: >100 bpm Resp Effort 5 min: Slow, Irregular Reflex Irritability 5 min: [place] Muscle Tone 5 min: Some Flexion of Extrem Color 5 min: Body [place], Extremit Blue Resuscitation Effort 5 min: Tactile Stimulation SCORE 5 MIN: 6 Heart Rate 10 min: >100 bpm Resp Effort 10 min: Good Cry Reflex Irritability 10 min: Cough/Sneeze/Pulls Away Muscle Tone 10 min: Some Flexion of Extrem Color 10 min: Body [place], Extremit Blue Resuscitation Effort 10 min: Tactile Stimulation SCORE 10 MIN: 8 INFANT INFORMATION BABY A Gestational Age at Delivery: 39.6 Gestational Status: Full Term- 39- 40.6 Weeks Infant Outcome : Liveborn, with signs of life Condition : Critical Infant Sex: Male IDENTIFICATION/MEDS BABY A ID Band Number: [id number] ID Band Location: Right Leg; Left Arm Sensor Applied: No Sensor Location : Cord Clamp Vitamin K Given : Not Given Erythromycin Given: Not Given WEIGHT/LENGTH BABY A Birthweight (gm): 3090 Infant Weight (lb): 6 Weight (oz): 13 Length (in): 19.75 Length (cm): 50.17 CORD INFORMATION BABY A No. Cord Vessels: 3 Nuchal Cord : N/A Cord Blood Taken: Yes Infant Suction: Mouth; Nose ASSESSMENT BABY A Complications: Extended Tachycardi; Multiple Late Decels; Multiple Variable Decels; Mec onium Physical Findings at Delivery: Molding of the Head Physical Findings- Other: SEE NICU REPORT Respirations: Nasal Flaring; Sternal Retractions Modular Home Crew Member/ALS Called : Yes Care By: AMRIT Transferred To: NICU
== END 2018-09-09 15:05 | disposition home or self-care (01) | DRG 786 ==
LOC: OBT 09:48 → L-D 09:49 → OBT 10:14 → L-D 10:16 → MS1 09-07 00:46 → PP1 09-08 13:42
PROVIDERS: ADMIT Obstetrics & Gynecology; ATTEND Obstetrics & Gynecology
PROC: 10D00Z1 Extraction of Products of Conception, Low, Open Approach (ICD-10-PCS; principal; 2018-09-07)
DX: O62.0 Primary inadequate contractions (principal); O41.1230 Chorioamnionitis, third trimester, not applicable or unspecified; O76 Abnormality in fetal heart rate and rhythm complicating labor and delivery; Z3A.39 39 weeks gestation of pregnancy; Z37.0 Single live birth
CPT/HCPCS: 36415; 36600; 80048; 82803; 85025; 85610; 85730; 86592; 86900; 86901; 88307; G0463; J0290; J1100; J1580; J1885; J2175; J2274; J2405; J2590; J2765; J2795; J3010; J7120